=== PATIENT | female | born 1935 | race Caucasian/White ===

== ENCOUNTER 2021-05-10 05:03 | Inpatient (IN) | payer OTHER ==
[~2021-05-10] VITALS: Ht 154.9 cm; Wt 59.9 kg
[2021-05-10 05:00] VITALS: BP 175/70
[~2021-05-10 05:03] MED LIST: COENZYME Q-10200 MG PO; DEPAKOTE SPRIN125 MG PO; DESYREL150 MG PO; FISH OIL 1,0001 EAC9 PO; LIPITOR10 MG PO; LOPRESSOR50 MG PO; MEMANTINE HCL10 MG PO; METAFOLBIC PLU1 EACH PO; NORVASC5 MG PO; PROTONIX 20 MG20 M1 PO; PROTONIX40 M4 PO; SERTRALINE HCL25 M1 PO; VITAMIN D350 MCG PO
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
[2021-05-10 09:40] VITALS: BP 147/62
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
[2021-05-10 19:11] VITALS: BP 171/79
[2021-05-10 21:00] VITALS: BP 171/79
--- NOTE | 2021-05-11 05:34 | NUR ---
PATIENT CARE WAS RESUMED AT 1900. SHE WAS SITTING IN THE DINING ARE AWITH OTHER PATINE. SHE IS ALER AND ROIED. MODERATE ASSISTANCE WITH CARE. SHE DEINIES SI/AVH/ HI AND ANY DISCONFORET. SHE TOOK HER MEDS WHOLE AND CONTINUES ON FALL PRECAUTION. BED IS LOW, ALARM, LOCKED AND [id number] CHECKS AND ARE ON GOING. SHE SPOKE WITH HER DAUGHTER IN-LAW OVER THE PHONE THIS EVEINNIG. SHE IS WAS ANXIOUS AND PACING UP AND DOWN THE HALLWAY EARLIER PART OF THE SHIFT.SHE RESTING CALM IN BED NOW. CONTINUE CARE.
--- NOTE | 2021-05-11 09:15 | NUR ---
Assess due to new admit to [facility] with altered mental status. hx alzheimers. On regular diet and tolerating first few meals on unit well. Labs reviewed. On vitamin D supplementation. Wt status adequate. Low nutrition risk
[2021-05-11 09:35] VITALS: BP 154/98
--- NOTE | 2021-05-11 13:02 | NUR ---
Alert and orientated to name only. Becomes frustrated at times but is redirectable. Confused speech. Denies SI/HI. Breath sounds clear. Reg HR ausculated. Color pink with brisk capillary refill and palpable peripheral pulses. No edema noted. Active bowel sounds over soft, flat abdomen. Yellow urine per toilet, independent with voiding. Ambulates with regular, steady gait. Upset d/t couldn't find her hat, happy when it was found. Currently ambulating in halls without s/o distress.
[2021-05-11 13:50] VITALS: BP 140/91
--- NOTE | 2021-05-11 15:09 | NUR ---
Yesterday, CORRIE spoke with Delia and obtained background information on pt. Delia said she will email to CORRIE a copy of pts DPOA document. Today CORRIE spoke with Admin Jacques concerning pt. He said he would like pt to be not aggessive, and have a med adjustment. He would like the doctor to try seroquel. He said that she is acting way out of character. Fax number for facility is [phone]. CORRIE team will continue to follow pt during his stay on this unit.
[2021-05-11 20:19] VITALS: BP 197/63
--- NOTE | 2021-05-11 22:17 | NUR ---
Pt is Alert/Oriented, Lungs clear, HRR, Abd soft non tender, disposition pleasant denies SI/HI/AH/VH. Took medications without difficulty. Amb without assist aid. Will continue to monitor throughout shift and follow Q 12 min checks per [facility] protocol.
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
[2021-05-11 22:38] VITALS: BP 160/86
[2021-05-12 09:12] VITALS: BP 152/71
[2021-05-12 09:33] VITALS: BP 152/71
--- NOTE | 2021-05-12 11:09 | NUR ---
1105 RESUMMED CARE FROM OVERNIGHT SHIFT THIS AM, PATIENT IN DAY ROOM SITTING QUIET. PATIENT ALERT ORIENTED TIMES 3 PATIENT AT FIRST STATED TO ME SHE DOES NOT FEEL LIKE ANSWERING MY QUESTIONS. PATIENT DENIES SI/HI/AH/VH AT PRESENT PATIENT ATE BREAKFAST TOOK MEDICATION WITHOUT INCIDENCE. PATIENTS ABDOMEN SOFT BOWEL SOUNDS PRESENT PATIENTS LUNGS CLEAR. PATIENT AFFECT FLAT PATIENT HAS NOT DISPLAYED ANY BEHAVIORS. WILL CONTINUE TO MONITOR FOR SAFETY AND BEHAVIORS.
[2021-05-12 19:39] VITALS: BP 179/65
--- NOTE | 2021-05-12 22:49 | NUR ---
Pt was upset this evening and wanting to go home. Pt states you can not keep me here. We discussed the progress she has made. Pt then states "well I am just cold" got pt a blanket. She calmed down and finished watching the baseball game with the other pt in the day room. Pt took her medication w/o issue. A/O x2 with diorientation to place but after further explanation she knew where she was. Amb w/o walker, Lung sounds clear, HRR, abd soft non tender + bowel sounds x 4 q. Denies SI/HI/AH/VH. Will continue to monitor.
[2021-05-12 23:05] VITALS: BP 179/65
[2021-05-13 09:33] VITALS: BP 169/78
[2021-05-13 09:46] VITALS: BP 169/78
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
[2021-05-13 11:41] LABS: BASOPHILS 0.6 % (0.0-2.0); EOSINOPHILS 3.6 % (0.0-3.0); HEMATOCRIT 39.5 % (37.0-47.0); HEMOGLOBIN 12.7 gm/dL (12.0-15.0); LYMPHOCYTES 14.5 % (24.0-44.0); MCH 29.8 pg (26.0-34.0); MCHC 32.2 g/dL (28.0-37.0); MCV 92.4 fL (80.0-100.0); MONOCYTES 10.2 % (1.0-8.0); PLATELET COUNT 222 thou/uL (150-400); POLYS 71.1 % (36.0-66.0); RBC 4.27 mil/uL (4.20-5.00); RDW 14.5 % (10.5-14.5); WBC 5.7 thou/uL (4.0-11.0)
[2021-05-13 12:00] LABS: ALBUMIN 3.5 g/dL (3.4-5.0); CALCIUM 9.5 mg/dL (8.5-10.1); MAGNESIUM 2.1 mg/dL (1.8-2.4); POTASSIUM 3.9 mmol/L (3.5-5.1); TOTAL BILIRUBIN 0.4 mg/dL (0.2-1.0)
[2021-05-13 12:01] LABS: % SATURATION 24 % (20-39); IRON 73 ug/dL (50-170); TIBC 304 ug/dL (250-450)
--- NOTE | 2021-05-13 13:24 | NUR ---
CORRIE attempted to email a [facility] welcome on Friday to Delia to [email or web address] and received an error msg. CORRIE attempted to call Delia to verify her email. Phone went straight to . CORRIE left a msg. CORRIE team will continue to follow pt during her stay on this unit.
[2021-05-13 19:19] VITALS: BP 154/115
[2021-05-13 20:30] VITALS: BP 148/74
--- NOTE | 2021-05-14 01:43 | NUR ---
QUETA CARE WAS RESUMED AT 1900. SHE IS WAS IN THE DINING ROOM AREA. SHE AMBULATES .DENIES PAINS/SI/AVH/HI AT THIS TIME. LUNGS ARE CLEAR BS ACTIVE X 4 QUADS. SHE TOOK HER MEDS WHOLE. SHE IS CONTINET OF BWEL AND BLADDER.SHE IS CONFUSSED AND WITH SOME FLIGHT OF IDEAS. SHE IS RESTING IN BED AT TIS TIME AND ALARM IS ACTIVATED, BED IS LOW AND LOCKED. Q 12MINUTES CHECK IS ONGING CONTINUE CARE.
[2021-05-14 10:12] VITALS: BP 179/70
--- NOTE | 2021-05-14 16:15 | NUR ---
Per CORRIE Rosario's request, CORRIE verified Delia's email address. The correct address is . CORRIE team will continue to follow while on this unit.
--- NOTE | 2021-05-14 17:29 | NUR ---
CORRIE was informed that patient's dtr called with questions re: DPOA paperwork. CORRIE called Delia and she informed she had not called. CORRIE spoke to Olga who stated her mother may have completed one years ago. She would have to look for it and will call CORRIE Rosario to update her. CORRIE team will remain available while pt is on this unit.
[2021-05-14 19:15] VITALS: BP 159/137
--- NOTE | 2021-05-14 20:03 | NUR ---
0700 ASSUMED CARE OF PATIENT, PATIENT IN BED AT THAT TIME. AMB SLOW WITH STEADY GAIT. PATIENT FEEDS SELF. MEDICATION REFUSED BY PATIENT, DR MAURER OBSERVED PATIENT REFUSING. PATIENT CONFUSED AND RAMBLING ON , UNABLE TO ANSWER QUESTION AT THAT TIME. ATTEMPT TO GIVE MEDICATION 1 HR LATER, PATIENT REFUSING AT THAT TIME. PATIENT PRESENT IN AM GROUP. LS CLEAR, BS ACTIVE, DENIES PAIN.
--- NOTE | 2021-05-15 09:06 | NUR ---
LATE ENTRY 05/14/21 @ 19:15, IN DAY ROOM AND WATCHING TV, ALSO SOCIALIZING WITH PEERS. COMPLIANT WITH MEDICATION, COOPERATIVE WITH ASSESSMENT AND RETIRED @ HS. BED IN LOW POSITION, WILL CONTINUE TO MONITOR FOR COMFORT AND SAFETY.
[2021-05-15 10:28] VITALS: BP 190/67
--- NOTE | 2021-05-15 12:47 | NUR ---
CORRIE again contacted Delia and attempted to follow-up on the DPOA doc issue and her email; the facility sent an incomplete dpoa document that lists [facility] as dpoa. Delia was supposed to email this doc to CORRIE last week. CORRIE contacted Olga. No answer. CORRIE left a msg. CORRIE team will continue to follow pt during her stay on this unit.
--- NOTE | 2021-05-15 15:52 | NUR ---
CORRIE spoke with Yue with [facility] about pt dischargimg tomorrow. She asked CORRIE to fax update med list. CORRIE and Yue agreed upon a 1030 d/c tomorrow. She asked CORRIE to arrange transportation, CORRIE contacted [employer] and arranged transportation for tomorrow. Trip # [id number]. CORRIE team will continue to follow pt during her stay on this unit.
[2021-05-15 20:03] VITALS: BP 198/100
--- NOTE | 2021-05-15 20:49 | NUR ---
0700 ASSUMED CARE OF PATIENT, PATIENT IN BED AT THAT TIME. PATIENT AMB SLOW WITH STEADY GAIT. SPEACH GARBLED AND HARD TO UNDERSTAND AT TIMES. MEDICATION TAKEN WHOLE WITHOUT DIFFICULTY. AT TIMES PATIENT HAS HARD TIME SAYING WORDS TO EXPRESS SELF. LS CLEAR, BS ACTIVE. NO PAIN NOTED. VS190/67 68 18 96.0 96% PATIENT CALM AND EASILY REDIRECTABLE. BP RECHECKED WITH 186/103. DR WILSON NOTIFIED, ORDERS RECIEVED.
[2021-05-15 21:00] VITALS: BP 159/87
[2021-05-16] MEDS ORDERED: DEPAKOTE SPRIN125 MG PO (09:21)
[2021-05-16 09:38] VITALS: BP 172/68
--- NOTE | 2021-05-16 09:43 | NUR ---
CORRIE D/C Note CORRIE faxed to [facility] a copy of pt's discharge docs. SW will file in hospital file. No other needs for SW team to address at this time.
--- NOTE | 2021-05-16 10:31 | NUR ---
PATIENT HAS BEEN UP, AND OUT ON THE UNIT, PARTICIPATED IN MORNING GROUP. PATIENT TOOK ALL MEDICATION WHOLE WITHOUT DIFFICULTY. PATIENT IS EATING MEALS, AND DRINKING FLUID WELL. PATIENT DENIES SUICIDAL/HOMICIDAL IDEATION, NOT ABLE TO APPROPRIATELY RESPOND TO FURTHER ASSESSMENT QUESTIONS DUE TO COGNITIVE IMPAIREMENT. NO AGITATION OR AGGRESSIVE BEHAVIOR NOTED AT THIS TIME. PATIENT IS BEING DISCHARGED TO [facility] TODAY, REPORT CALLED TO NURSE (PRAFUL), AWAITING TRANSPORTATION. NO SIGN OF ACUTE DISTRESS NOTED AT THIS TIME, WILL MONITOR FOR SAFETY.
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
== END 2021-05-16 11:22 | DRG 57 ==
LOC: SBH 05:03
PROVIDERS: Internal Medicine; ADMIT Psychiatry & Neurology Psychiatry; ATTEND Psychiatry & Neurology Psychiatry
DX: G30.9 Alzheimer's disease, unspecified (principal); F02.81 Dementia in other diseases classified elsewhere, unspecified severity, with behavioral disturbance; F32.9 Major depressive disorder, single episode, unspecified; F22 Delusional disorders; I10 Essential (primary) hypertension; D64.9 Anemia, unspecified; E78.5 Hyperlipidemia, unspecified; E87.6 Hypokalemia; Z98.42 Cataract extraction status, left eye; Z98.41 Cataract extraction status, right eye; Z90.710 Acquired absence of both cervix and uterus; Z88.8 Allergy status to other drugs, medicaments and biological substances
CPT/HCPCS: 10880